=== PATIENT | female | born 1945 | race Two or more races ===

== ENCOUNTER → 2021-10-02 | Outpatient (CLI) | payer MEDICARE, OTHER ==
[2021-10-02 14:01] LABS: Eosinophils # (auto) 0.1 10 ^3/uL (0-0.8); Eosinophils % (auto) 0.8 % (0.0-7.0); Lymphocytes # (auto) 2.3 10 ^3/uL (0.4-5.4); Lymphocytes % (auto) 30.6 % (10.0-50.0); Mean Corpuscular Hemoglobin 24.7 pg (28.0-32.0); Mean Corpuscular Volume 78.4 fL (80.0-100.0); Monocytes # (auto) 0.4 10 ^3/uL (0-1.3); Neutrophils # (auto) 4.6 10 ^3/uL (1.6-8.6); Nucleated Red Blood Cells % 0.1 %; White Blood Cell 7.5 10^3/uL (4.4-10.8)
[2021-10-02 14:03] LABS: Basophils # (auto) 0.1 10 ^3/uL (0-0.2); Basophils % (auto) 0.7 % (0.0-2.0); Hematocrit 41.9 % (36.0-46.0); Hemoglobin 13.2 g/dL (12.2-16.2); Mean Corpuscular Hgb Conc. 31.6 g/dL (32.0-36.0); Neutrophils % (auto) 61.9 % (37.0-80.0); Red Blood Cells 5.35 10^6/uL (4.0-5.20); Red Cell Distribution Width 16.9 % (11.8-14.3)
[2021-10-02 14:12] LABS: Potassium 3.5 mmol/L (3.5-5.1)
[2021-10-02 14:19] LABS: Albumin 3.3 g/dL (3.4-5.0); BUN/Creatinine Ratio 27.3; Bilirubin, Total 0.9 mg/dL (0.2-1.0); Calcium 9.7 mg/dL (8.5-10.1); Total Protein 7.6 g/dL (6.4-8.2)
== END | disposition home or self-care (01) ==
LOC: LAB 08:29
PROVIDERS: ATTEND Nurse Practitioner
DX: E11.9 Type 2 diabetes mellitus without complications (principal); I10 Essential (primary) hypertension; R78.5 Finding of other psychotropic drug in blood
CPT/HCPCS: 36415; 80053; 85025

== ENCOUNTER → 2022-01-18 | Outpatient (CLI) | payer MEDICARE, OTHER ==
[~2022-01-18] MED LIST: ALBUTEROL SULF 2.5 MG/0.5ML(0.5%) NEB SOLN ONE
== END | disposition home or self-care (01) ==
LOC: RT 08:31
PROVIDERS: ATTEND Internal Medicine Pulmonary Disease
DX: J44.9 Chronic obstructive pulmonary disease, unspecified (principal); R06.00 Dyspnea, unspecified
CPT/HCPCS: 94060; 94727; 94729

== ENCOUNTER → 2022-02-14 | Outpatient (CLI) | payer MEDICARE, OTHER | END | disposition home or self-care (01) | LOC: XYW 13:44 | PROVIDERS: ATTEND Internal Medicine Pulmonary Disease | DX: I08.3 Combined rheumatic disorders of mitral, aortic and tricuspid valves (principal) | CPT/HCPCS: 93306 ==

== ENCOUNTER 2022-08-21 09:14 | Emergency (ER) | payer MEDICARE, OTHER ==
[~2022-08-21] VITALS: Ht 149.9 cm; Wt 76.0 kg
[2022-08-21 10:32] LABS: Basophils # (auto) 0 10 ^3/uL (0-0.2); Eosinophils # (auto) 0.1 10 ^3/uL (0-0.8); Mean Corpuscular Hemoglobin 24.2 pg (28.0-32.0); Mean Corpuscular Hgb Conc. 30.9 g/dL (32.0-36.0)
[2022-08-21 10:35] LABS: Basophils % (auto) 0.4 % (0.0-2.0); Eosinophils % (auto) 0.6 % (0.0-7.0); Hematocrit 43.2 % (36.0-46.0); Hemoglobin 13.3 g/dL (12.2-16.2); Lymphocytes # (auto) 2.1 10 ^3/uL (0.4-5.4); Lymphocytes % (auto) 23.9 % (10.0-50.0); Mean Corpuscular Volume 78.3 fL (80.0-100.0); Monocytes # (auto) 0.5 10 ^3/uL (0-1.3); Monocytes % (auto) 5.4 % (0.0-12.0); Neutrophils # (auto) 6.1 10 ^3/uL (1.6-8.6); Neutrophils % (auto) 69.7 % (37.0-80.0); Nucleated Red Blood Cells % 0.1 %; Red Blood Cells 5.52 10^6/uL (4.0-5.20); Red Cell Distribution Width 16.4 % (11.8-14.3); White Blood Cell 8.7 10^3/uL (4.4-10.8)
[2022-08-21 10:58] LABS: Urine Bacteria NONE SEEN /hpf (None Seen); Urine Blood Negative /uL (Negative); Urine Specific Gravity 1.028 (1.001-1.035); Urine WBC 5 /hpf (0 - 5)
[2022-08-21 10:59] LABS: BUN/Creatinine Ratio 19.5; Calcium 8.9 mg/dL (8.5-10.1); Potassium 3.1 mmol/L (3.5-5.1)
[2022-08-21 11:02] LABS: Bilirubin, Total 0.7 mg/dL (0.2-1.0)
[2022-08-21] MEDS ORDERED: SODIUM CHLORIDE 0.9% 1,000 ML IV ONE (12:15)
[2022-08-21] MEDS ORDERED: MECLIZINE HCL 25 MG TAB PO ONE (12:15)
[2022-08-21] MEDS ORDERED: cefTRIAXone 1GM/50ML D5W 50 ML IV ONE (13:30)
[2022-08-21] MEDS ORDERED: POTASSIUM EFFERVESENT TAB 25 MEQ PO ONE (13:30)
[2022-08-21] MEDS ORDERED: InsuLIN REG 1unit/0.01ml Soln (100units/ml) IV ONE (13:30)
[2022-08-21] MEDS ORDERED: CIPR-173 PO (16:19)
[2022-08-21] MEDS ORDERED: MECL25CH38 PO (16:19)
[2022-08-21 16:24] VITALS: BP 151/59
== END 2022-08-21 16:29 | disposition home or self-care (01) ==
LOC: ER 09:14
DX: H81.10 Benign paroxysmal vertigo, unspecified ear (principal); E11.65 Type 2 diabetes mellitus with hyperglycemia; N39.0 Urinary tract infection, site not specified; E87.6 Hypokalemia; E44.1 Mild protein-calorie malnutrition; Z68.33 Body mass index [BMI] 33.0-33.9, adult; Z20.822 Contact with and (suspected) exposure to COVID-19
CPT/HCPCS: 36415; 70450; 71045; 80053; 81001; 82962; 83735; 84484; 85025; 87426; 93005; 96361; 96365; 96375; 99285; J0696; J1815; J7030; J8597

== ENCOUNTER → 2022-11-12 | Outpatient (CLI) | payer MEDICARE, OTHER ==
[~2022-11-12] MED LIST changes: -ALBUTEROL SULF 2.5 MG/0.5ML(0.5%) NEB SOLN ONE; +CIPR-173 PO; +MECL25CH38 PO
[2022-11-12 09:06] LABS: Basophils # (auto) 0.1 10 ^3/uL (0-0.2); Lymphocytes # (auto) 2.4 10 ^3/uL (0.4-5.4); Monocytes # (auto) 0.5 10 ^3/uL (0-1.3); Neutrophils # (auto) 4.3 10 ^3/uL (1.6-8.6); Nucleated Red Blood Cells % 0.1 %; Red Blood Cells 5.41 10^6/uL (4.0-5.20); White Blood Cell 7.3 10^3/uL (4.4-10.8)
[2022-11-12 09:08] LABS: Basophils % (auto) 0.8 % (0.0-2.0); Eosinophils # (auto) 0.1 10 ^3/uL (0-0.8); Eosinophils % (auto) 0.8 % (0.0-7.0); Hematocrit 41.1 % (36.0-46.0); Hemoglobin 13.1 g/dL (12.2-16.2); Lymphocytes % (auto) 32.7 % (10.0-50.0); Mean Corpuscular Hemoglobin 24.2 pg (28.0-32.0); Mean Corpuscular Hgb Conc. 31.8 g/dL (32.0-36.0); Mean Corpuscular Volume 76.1 fL (80.0-100.0); Monocytes % (auto) 7.1 % (0.0-12.0); Neutrophils % (auto) 58.6 % (37.0-80.0); Red Cell Distribution Width 16.3 % (11.8-14.3)
[2022-11-12 09:34] LABS: Urine Bacteria NONE SEEN /hpf (None Seen); Urine Blood Negative /uL (Negative); Urine Specific Gravity 1.018 (1.001-1.035); Urine WBC 6 /hpf (0 - 5)
[2022-11-12 09:51] LABS: Potassium 3.4 mmol/L (3.5-5.1)
[2022-11-12 10:04] LABS: BUN/Creatinine Ratio 21.2 (10.0-20.0); Bilirubin, Total 0.9 mg/dL (0.2-1.0); Total Protein 7.5 g/dL (6.4-8.2)
== END | disposition home or self-care (01) ==
LOC: LAB 08:44
PROVIDERS: ATTEND Nurse Practitioner
DX: I10 Essential (primary) hypertension (principal); E11.9 Type 2 diabetes mellitus without complications; E78.5 Hyperlipidemia, unspecified
CPT/HCPCS: 36415; 80053; 80061; 81001; 82043; 83036; 85025

== ENCOUNTER 2023-02-01 09:03 | Emergency (ER) | payer MEDICARE, OTHER ==
[~2023-02-01] VITALS: Ht 149.9 cm; Wt 75.0 kg
[2023-02-01 09:40] LABS: Basophils # (auto) 0 10 ^3/uL (0-0.2); Eosinophils # (auto) 0 10 ^3/uL (0-0.8); Lymphocytes # (auto) 2.4 10 ^3/uL (0.4-5.4); Monocytes # (auto) 0.4 10 ^3/uL (0-1.3); Neutrophils % (auto) 65.1 % (37.0-80.0); Nucleated Red Blood Cells % 0.1 %
[2023-02-01 09:42] LABS: Basophils % (auto) 0.4 % (0.0-2.0); Eosinophils % (auto) 0.6 % (0.0-7.0); Hematocrit 41.1 % (36.0-46.0); Hemoglobin 12.8 g/dL (12.2-16.2); Lymphocytes % (auto) 28.7 % (10.0-50.0); Mean Corpuscular Hemoglobin 23.8 pg (28.0-32.0); Mean Corpuscular Hgb Conc. 31.2 g/dL (32.0-36.0); Mean Corpuscular Volume 76.4 fL (80.0-100.0); Monocytes % (auto) 5.2 % (0.0-12.0); Neutrophils # (auto) 5.4 10 ^3/uL (1.6-8.6); Red Blood Cells 5.38 10^6/uL (4.0-5.20); Red Cell Distribution Width 16.7 % (11.8-14.3); White Blood Cell 8.3 10^3/uL (4.4-10.8)
[2023-02-01] MEDS ORDERED: ASPirin 81 mg TAB PO ONE (09:45)
[2023-02-01 10:03] LABS: Partial Thromboplastin Time 25.1 SEC (24.5-34.5)
[2023-02-01 10:05] LABS: Albumin 3.2 g/dL (3.4-5.0); Calcium 8.7 mg/dL (8.5-10.1); Magnesium 1.8 mg/dL (1.6-2.6); Potassium 3.5 mmol/L (3.5-5.1)
[2023-02-01 10:08] LABS: BUN/Creatinine Ratio 28.2 (10.0-20.0); Bilirubin, Total 0.8 mg/dL (0.2-1.0); Total Protein 7.1 g/dL (6.4-8.2)
[2023-02-01 10:10] LABS: Urine Bacteria FEW /hpf (None Seen); Urine Blood Negative /uL (Negative); Urine Mucus FEW (None Seen); Urine Specific Gravity 1.018 (1.001-1.035); Urine WBC 7 /hpf (0 - 5)
[2023-02-01] MEDS ORDERED: CEPHALEXIN 250 MG CAP PO ONE (12:45)
[2023-02-01] MEDS ORDERED: FAMO20TA10 GT (14:57)
[2023-02-01] MEDS ORDERED: CEPH500T PO (14:57)
[2023-02-01] MEDS ORDERED: BISA-13 PO (14:57)
[2023-02-01 15:08] VITALS: BP 142/58
== END 2023-02-01 15:10 | disposition home or self-care (01) ==
LOC: ER 09:03
DX: K29.70 Gastritis, unspecified, without bleeding (principal); N39.0 Urinary tract infection, site not specified; I10 Essential (primary) hypertension; J44.9 Chronic obstructive pulmonary disease, unspecified; E11.9 Type 2 diabetes mellitus without complications; R06.02 Shortness of breath; Z88.6 Allergy status to analgesic agent; Z90.49 Acquired absence of other specified parts of digestive tract; Z90.710 Acquired absence of both cervix and uterus
CPT/HCPCS: 36415; 71045; 80053; 81001; 82962; 83735; 83880; 84484; 85025; 85610; 85730; 93005

== ENCOUNTER 2023-03-11 10:01 | Inpatient (IN) | payer MEDICARE, OTHER ==
[~2023-03-11] VITALS: Ht 144.8 cm; Wt 82.0 kg
[~2023-03-11 10:01] MED LIST changes: +BISA-13 PO; +CEPH500T PO; +FAMO20TA10 GT
[2023-03-11] MEDS ORDERED: SODIUM CHLORIDE 0.9% 1,000 ML IV ONE (10:45)
[2023-03-11 11:15] LABS: Basophils # (auto) 0 10 ^3/uL (0-0.2); Eosinophils # (auto) 0 10 ^3/uL (0-0.8); Eosinophils % (auto) 0.1 % (0.0-7.0); Hemoglobin 13.6 g/dL (12.2-16.2)
[2023-03-11 11:17] LABS: Basophils % (auto) 0.3 % (0.0-2.0); Hematocrit 42.7 % (36.0-46.0); Lymphocytes # (auto) 1.2 10 ^3/uL (0.4-5.4); Lymphocytes % (auto) 12.2 % (10.0-50.0); Mean Corpuscular Hemoglobin 23.5 pg (28.0-32.0); Mean Corpuscular Hgb Conc. 31.8 g/dL (32.0-36.0); Monocytes # (auto) 0.4 10 ^3/uL (0-1.3); Monocytes % (auto) 3.7 % (0.0-12.0); Neutrophils # (auto) 8.6 10 ^3/uL (1.6-8.6); Neutrophils % (auto) 83.7 % (37.0-80.0); Red Blood Cells 5.76 10^6/uL (4.0-5.20); Red Cell Distribution Width 16.4 % (11.8-14.3); White Blood Cell 10.3 10^3/uL (4.4-10.8)
[2023-03-11 11:37] LABS: Albumin 3.5 g/dL (3.4-5.0); Bilirubin, Total 0.9 mg/dL (0.2-1.0); Calcium 9.1 mg/dL (8.5-10.1); Magnesium 1.7 mg/dL (1.6-2.6); Total Protein 8.2 g/dL (6.4-8.2)
[2023-03-11] MEDS ORDERED: hydrALAZINE HCL 20 MG/ML VL IV PRN (13:00)
[2023-03-11] MEDS ORDERED: KETOROLAC TROMETH 30 MG/ML 1ML VIAL IV ONE (13:00)
[2023-03-11] MEDS ORDERED: PANTOPRAZOLE 40 MG/10 ML VIAL INJ IV ONE (13:00)
[2023-03-11 13:27] LABS: Cholesterol 221 mg/dL (< 200); HDL Cholesterol 109 mg/dL (40-59); LDL Cholesterol 95 mg/dL (< 100); Triglycerides 72 mg/dL (< 150)
[2023-03-11] MEDS ORDERED: MORPHINE SULFATE INJ 2 MG/ml SYRG IV PRN (13:45)
[2023-03-11] MEDS ORDERED: NITROGLYCERIN 0.4 MG SL TAB SL PRN (13:45)
[2023-03-11] MEDS: SODIUM CHLORIDE 0.9% 1,000 ML IV SCH (13:47)
[2023-03-11] MEDS: ONDANSETRON HCL 4 MG/2 ML VIAL IV PRN ×2 (13:47→20:41)
[2023-03-11] MEDS: POTASSIUM CHL 20MEQ/100ML 100 ML IV SCH ×2 (13:48→16:48)
[2023-03-11] MEDS ORDERED: GASTROGRAFIN 120 ML SOL ONE (13:49)
[2023-03-11 15:44] VITALS: PULSE 92; RESP 16; O2SAT 97
[2023-03-11] MEDS ORDERED: BENZOCAINE (DENTAL) 20 % SPRAY 60ML MT ONE (16:18)
[2023-03-11 20:00] VITALS: PULSE 83; RESP 23; O2SAT 98
[2023-03-11 23:32] VITALS: BP 135/60; PULSE 71; RESP 16; TEMP 98; O2SAT 98
[2023-03-12] VITALS (13 sets, daily range): BP systolic 120–140; BP diastolic 55–73; PULSE 60–119; RESP 16–20; TEMP 97.7–98.1; O2SAT 96–100
[2023-03-12] MEDS ORDERED: SIMV20TA20 PO (00:16)
[2023-03-12] MEDS ORDERED: METF-869 PO (00:16)
[2023-03-12] MEDS ORDERED: LEVEMIR SC (00:16)
[2023-03-12] MEDS ORDERED: ALBUAER3 INH (00:16)
[2023-03-12] MEDS ORDERED: OMEP1CAP70 PO (00:16)
[2023-03-12] MEDS: SODIUM CHLORIDE 0.9% 1,000 ML IV SCH ×2 (02:20→09:00)
[2023-03-12 06:58] LABS: Basophils # (auto) 0 10 ^3/uL (0-0.2); Basophils % (auto) 0.3 % (0.0-2.0); Eosinophils # (auto) 0 10 ^3/uL (0-0.8); Eosinophils % (auto) 0.3 % (0.0-7.0); Lymphocytes # (auto) 2.2 10 ^3/uL (0.4-5.4); Lymphocytes % (auto) 19.4 % (10.0-50.0); Neutrophils # (auto) 8.3 10 ^3/uL (1.6-8.6); Red Cell Distribution Width 16.3 % (11.8-14.3)
[2023-03-12 06:59] LABS: Hematocrit 40.4 % (36.0-46.0); Hemoglobin 12.4 g/dL (12.2-16.2); Mean Corpuscular Hemoglobin 23.1 pg (28.0-32.0); Mean Corpuscular Hgb Conc. 30.7 g/dL (32.0-36.0); Mean Corpuscular Volume 75.3 fL (80.0-100.0); Monocytes # (auto) 0.8 10 ^3/uL (0-1.3); Monocytes % (auto) 7.3 % (0.0-12.0); Neutrophils % (auto) 72.7 % (37.0-80.0); Nucleated Red Blood Cells % 0.1 %; Red Blood Cells 5.36 10^6/uL (4.0-5.20); White Blood Cell 11.4 10^3/uL (4.4-10.8)
[2023-03-12 07:50] LABS: Potassium 3.5 mmol/L (3.5-5.1)
[2023-03-12 08:01] LABS: Albumin 3.1 g/dL (3.4-5.0); BUN/Creatinine Ratio 28.3 (10.0-20.0); Calcium 8.5 mg/dL (8.5-10.1); Total Protein 7.4 g/dL (6.4-8.2)
[2023-03-12] MEDS: ENOXAPARIN SOD 40 MG/0.4 ML SYRINGE SC SCH (09:01)
[2023-03-12] MEDS: PANTOPRAZOLE 40 MG/10 ML VIAL INJ IV SCH (09:01)
[2023-03-12] MEDS ORDERED: DEXTROSE (50%) 50ML SYRG IV PRN (11:30)
[2023-03-12] MEDS: ACCU-CHEK COMFORT CURVE STRIP VI SCH ×3 (11:44→22:38)
[2023-03-12] MEDS: InsuLIN REG 1unit/0.01ml Soln (100units/ml) SC SCH ×3 (11:46→22:37)
[2023-03-12 11:58] LABS: INR 1.02 (0.9-1.15); Partial Thromboplastin Time 27.9 SEC (24.5-34.5); Prothrombin Time 10.7 sec (9.3-11.8)
[2023-03-12] MEDS: ALBUTEROL SULF 2.5 MG/0.5ML(0.5%) NEB SOLN NEB SCH ×3 (14:00→22:28)
[2023-03-12] MEDS ORDERED: METOPROLOL TARTRATE 1MG/1ML-5ML VIAL IV ONE ×2 (20:15→21:15)
[2023-03-12] MEDS: ATORVASTATIN 20 MG TAB PO SCH (22:42)
[2023-03-13] VITALS (16 sets, daily range): BP systolic 122–131; BP diastolic 56–67; PULSE 55–73; RESP 16–19; TEMP 97.7–98.2; O2SAT 95–100
[2023-03-13] MEDS: ALBUTEROL SULF 2.5 MG/0.5ML(0.5%) NEB SOLN NEB SCH ×6 (01:56→22:04)
[2023-03-13] MEDS: ACCU-CHEK COMFORT CURVE STRIP VI SCH ×4 (07:06→22:26)
[2023-03-13] MEDS: InsuLIN REG 1unit/0.01ml Soln (100units/ml) SC SCH ×4 (07:07→22:29)
[2023-03-13] MEDS: SODIUM CHLORIDE 0.9% 1,000 ML IV SCH ×2 (07:08→11:21)
[2023-03-13] MEDS: PANTOPRAZOLE 40 MG/10 ML VIAL INJ IV SCH (09:00)
[2023-03-13] MEDS: ENOXAPARIN SOD 40 MG/0.4 ML SYRINGE SC SCH (09:01)
[2023-03-13] MEDS: ATORVASTATIN 20 MG TAB PO SCH (22:33)
[2023-03-14] VITALS (8 sets, daily range): BP systolic 123–133; BP diastolic 57–61; PULSE 56–145; RESP 14–16; TEMP 36.9; O2SAT 97–100
[2023-03-14] MEDS: ACCU-CHEK COMFORT CURVE STRIP VI SCH ×2 (06:17→11:12)
[2023-03-14] MEDS: InsuLIN REG 1unit/0.01ml Soln (100units/ml) SC SCH ×2 (06:17→11:14)
[2023-03-14] MEDS: ALBUTEROL SULF 2.5 MG/0.5ML(0.5%) NEB SOLN NEB SCH ×2 (06:58→10:16)
[2023-03-14] MEDS: ENOXAPARIN SOD 40 MG/0.4 ML SYRINGE SC SCH (09:49)
[2023-03-14] MEDS: PANTOPRAZOLE 40 MG/10 ML VIAL INJ IV SCH (09:49)
[2023-03-14] MEDS: SODIUM CHLORIDE 0.9% 1,000 ML IV SCH (09:50)
== END 2023-03-14 12:40 | disposition home or self-care (01) | DRG 389 ==
LOC: ER 10:01 → OVERFLOW 12:53 → TELE-WESTW 22:49
PROVIDERS: ADMIT Family Medicine; ATTEND Family Medicine
PROC: 0D9670Z Drainage of Stomach with Drainage Device, Via Natural or Artificial Opening (ICD-10-PCS; principal; 2023-03-11)
DX: K56.609 Unspecified intestinal obstruction, unspecified as to partial versus complete obstruction (principal); J44.1 Chronic obstructive pulmonary disease with (acute) exacerbation; E87.6 Hypokalemia; E66.01 Morbid (severe) obesity due to excess calories; I10 Essential (primary) hypertension; Z68.35 Body mass index [BMI] 35.0-35.9, adult; E11.65 Type 2 diabetes mellitus with hyperglycemia; E78.00 Pure hypercholesterolemia, unspecified; I48.91 Unspecified atrial fibrillation; Z82.49 Family history of ischemic heart disease and other diseases of the circulatory system; Z83.3 Family history of diabetes mellitus; Z90.49 Acquired absence of other specified parts of digestive tract; Z90.710 Acquired absence of both cervix and uterus; Z88.5 Allergy status to narcotic agent
CPT/HCPCS: 36415; 74018; 74176; 74250; 80053; 80061; 82962; 83036; 83690; 83735; 84443; 85025; 85610; 85730; 93005; 94640; 96365; 96366; 96375; 96376; C9113; G0378; J1815; J1885; J2405; J3480